=== PATIENT | female | born 1975 | race Asian ===

== ENCOUNTER → 2019-03-21 | Outpatient (CLI) | payer OTHER ==
[~2019-03-21] MED LIST: PRENATAL PO
== END ==
LOC: M.RAD 10:59
DX: Z12.31 Encounter for screening mammogram for malignant neoplasm of breast (principal)

== ENCOUNTER → 2021-03-08 | Outpatient (CLI) | payer OTHER | LOC: M.RAD 09:16 | PROVIDERS: ATTEND Internal Medicine | DX: Z12.31 Encounter for screening mammogram for malignant neoplasm of breast (principal) ==

== ENCOUNTER 2021-03-28 23:06 | Observation (INO) | payer OTHER ==
[~2021-03-28] VITALS: Ht 149.9 cm; Wt 63.6 kg
--- NOTE | ~2021-03-28 | OP ---
[address] [address] OPERATIVE REPORT Name: RORY BURNS Room: [address] Jakob [place]#: [id number] Admission: 03/29/21 Attend Phys: Gilberto Sher Discharge: Date of : 71 Report #: [id number] THIS REPORT FOR: cc: Claudette Dockery MD, Lin W. MD Haggard, Kent L MD ~ DATE OF SURGERY: 03/29/2021 PREOPERATIVE DIAGNOSES: A 7 mm proximal left ureteral stone, hydronephrosis, renal colic. POSTOPERATIVE DIAGNOSES: A 7 mm proximal left ureteral stone, hydronephrosis, renal colic. PROCEDURE PERFORMED: Cystoscopy, left retrograde pyelogram, left ureteroscopy, holmium laser lithotripsy, ureteroscopic stone extraction, placement of left ureteral stent with attached string. STAFF SURGEON: Fran Humphrey MD MANAGER PROGRAM MANAGEMENT: None. TYPE OF ANESTHESIA: General. ESTIMATED BLOOD LOSS: None. COMPLICATIONS: None. SPECIMENS: Left ureteral stone fragments. DRAINS: A 26 cm x 4.8-[place] left ureteral stent with attached string. INDICATIONS: The patient is a 45-year-old female with no prior history of kidney stones, presented with acute onset left flank pain. CT scan confirmed a 7 mm left ureteropelvic junction stone with hydronephrosis. She was counseled regarding the treatment options and elected for definitive cystoscopy, left retrograde pyelogram, possible holmium laser lithotripsy, possible placement of left ureteral stent. After risks and benefits of the procedure explained, informed consent was obtained. DESCRIPTION OF PROCEDURE: The patient was taken to the operating room, comfortably placed in the dorsal lithotomy position under adequate general anesthesia. She was sterilely prepped and draped in standard fashion exposing only the genitalia. She was up to date on antibiotic therapy. Appropriate timeout was carried out and all were in agreement. A 22-[place] cystoscope was placed into the urethra. The obturator was removed, [place] [address] OPERATIVE REPORT Name: RORY BURNS Room: [address] M.R.#: [id number] Admission: 03/29/21 Attend Phys: Gilberto Sher Discharge: Date of : 71 Report #: [id number] colored urine. Bladder was systematically viewed. Both ureteral was identified normal. No bladder calculi seen or foreign body observed. Mucosa was smooth without any irregularity. An 8-[place] cone-tipped catheter placed in the left ureteral orifice and retrograde pyelogram performed showing kind of a narrow caliber ureter all the way up to a filling defect at the ureteropelvic junction which could be easily seen by on fluoroscopy, corresponding stones seen on CT scan. An 0.035 Glidewire gently placed up the left ureter and left kidney and cystoscope was removed. A 4.5-[place] tapered to a 6.5-[place] Pearson semi-rigid ureteroscope advanced through the urethra, gently placed in the left ureter following all the way up to the ureteropelvic junction with a stone and just fallen into the renal pelvis but we could still identify the stone. A 1.9-[place] stone basket was used to bring the stone to the ureteropelvic junction. A 200 micron holmium laser fiber set at 6.4 cooney began to sequentially fragment the stone into multiple fragments until it was released from the basket. The laser fiber had broken through one of the basket, so we just removed that basket and put a new basket, removed three fragments gently from the renal pelvis. Under fluoroscopy, no significant fragments were made. The stones were sent off for analysis. The ureteroscope was then removed. I placed a 26 cm x 4.8-[place] ureteral stent, coaxially the guidewire positioned with good coil in left renal pelvis, good coil in the bladder. The bladder was drained, cystoscope was removed. A 20 mL of lidocaine jelly was placed in the bladder, string left attached to the labia majora and secured with a Tegaderm. She was extubated in the operating room, transferred to [facility] with assistance and went to recovery in stable condition. May remove the stent on Monday. Follow up in our office in 6 weeks with renal ultrasound and a KUB. By: [id number] Humphrey MD /garcía
[2021-03-28 23:20] VITALS: BP 160/75
[2021-03-28 23:26] LABS: URINE BILIRUBIN NEGATIVE (Negative); URINE BLOOD 2+ (Negative); URINE CLARITY CLEAR; URINE COLOR YELLOW; URINE GLUCOSE-RANDOM NEGATIVE (Negative); URINE KETONES NEGATIVE (Negative); URINE LEUKOCYTES-REFLEX NEGATIVE (Negative); URINE NITRITE-REFLEX NEGATIVE (Negative); URINE PROTEIN NEGATIVE (Negative); URINE SPECIFIC GRAVITY 1.025 (1.005-1.030); URINE UROBILINOGEN 0.2 E.U./dl (0.2-1.0)
[2021-03-28 23:37] LABS: SQUAMOUS 4-10 Moderate /LPF (0-3)
[2021-03-28 23:38] LABS: AMORPHOUS URATES Moderate /LPF (None Seen); BACTERIA-REFLEX >30 Many /HPF (None Seen); FINE GRANULAR CASTS 0-3 Few /LPF (None Seen); MUCUS 4-6 Moderate strn/LPF (None Seen)
[2021-03-28 23:49] LABS: ABSOLUTE BASOPHILS 0.1 thou/uL (0.0-0.2); ABSOLUTE EOSINOPHILS 0.6 thou/uL (0.0-0.7); ABSOLUTE LYMPHOCYTES 1.4 thou/uL (0.8-5.3); ABSOLUTE MONOCYTES 0.6 thou/uL (0.0-1.2); ABSOLUTE NEUTROPHILS 12.6 thou/uL (1.6-8.1); BASOPHILS 0.3 %; EOSINOPHILS 3.6 %; HEMATOCRIT 41.1 % (37.0-47.0); HEMOGLOBIN 13.4 gm/dL (12.0-15.0); LYMPHOCYTES 9.4 %; MCH 27.3 pg (26.0-34.0); MCHC 32.7 g/dL (28.0-37.0); MCV 83.6 fL (80.0-100.0); MPV 7.5 fl. (7.2-11.1); NUCLEATED RBCS 0 /100WBC; PLATELET COUNT* 328 thou/uL (150-400); POLYS 82.7 %; RBC 4.92 mil/uL (4.20-5.00); RDW-CV 13.5 % (10.5-14.5); WBC 15.3 thou/uL (4.0-11.0)
[2021-03-28 23:54] LABS: CREATININE 1.3 mg/dL (0.6-1.3); POTASSIUM 3.6 mmol/L (3.5-5.1)
[2021-03-28 23:58] LABS: ALBUMIN 4.6 g/dL (3.4-5.0); TOTAL BILIRUBIN 0.6 mg/dL (<0.1-1.0); TOTAL PROTEIN 8.6 g/dL (6.4-8.2)
[2021-03-29 03:30] VITALS: BP 127/79
[2021-03-29] MEDS ORDERED: SPIRONOLACTONE25 MG (03:41)
[2021-03-29 03:48] VITALS: BP 133/79
[2021-03-29 08:00] VITALS: BP 168/77
[2021-03-29 10:05] LABS: CALCIUM 8.9 mg/dL (8.5-10.1); POTASSIUM 4.2 mmol/L (3.5-5.1)
[2021-03-29 10:08] LABS: MAGNESIUM 1.7 mg/dL (1.8-2.4); PHOSPHORUS* 3.6 mg/dL (2.5-4.9)
[2021-03-29 20:00] VITALS: BP 125/77
[2021-03-30] VITALS (7 sets, daily range): BP systolic 112–135; BP diastolic 68–85
[2021-03-30 04:02] LABS: CALCIUM 8.2 mg/dL (8.5-10.1); CREATININE 0.8 mg/dL (0.6-1.3); HEMATOCRIT 33.8 % (37.0-47.0); MCH 27.5 pg (26.0-34.0); MCV 83.4 fL (80.0-100.0); NUCLEATED RBCS 0 /100WBC; PLATELET COUNT* 260 thou/uL (150-400); RBC 4.06 mil/uL (4.20-5.00); RDW-CV 13.3 % (10.5-14.5); WBC 9.1 thou/uL (4.0-11.0)
[2021-03-30 04:09] LABS: HEMOGLOBIN 11.2 gm/dL (12.0-15.0)
[2021-03-30 05:22] LABS: ABSOLUTE LYMPHOCYTES 1.1 thou/uL (0.8-5.3); ABSOLUTE NEUTROPHILS 7.6 thou/uL (1.6-8.1); LYMPHOCYTES 11.7 %; POLYS 83.9 %
[2021-03-30 05:23] LABS: ABSOLUTE MONOCYTES 0.4 thou/uL (0.0-1.2); BASOPHILS 0.2 %; EOSINOPHILS 0.2 %
== END 2021-03-30 14:21 | disposition home or self-care (01) ==
LOC: M.ERS 23:06 → M.TBA-ER 03-29 02:34 → M.3W 03-29 02:34 → M.2W 03-29 03:30 → M.3W 03-29 06:04
PROVIDERS: Internal Medicine; Personal Emergency Response Attendant; ADMIT Internal Medicine; ATTEND Internal Medicine
DX: N13.2 Hydronephrosis with renal and ureteral calculous obstruction (principal); N20.1 Calculus of ureter; D72.829 Elevated white blood cell count, unspecified; I10 Essential (primary) hypertension; E87.1 Hypo-osmolality and hyponatremia; R31.9 Hematuria, unspecified; Z20.822 Contact with and (suspected) exposure to COVID-19; Z23 Encounter for immunization; Z79.899 Other long term (current) drug therapy